=== PATIENT | female | born 1975 | race African-American/Black ===

== ENCOUNTER 2020-07-25 11:15 | Inpatient (IN) | payer OTHER ==
[~2020-07-25 11:15] MED LIST: chlordiazePOXIDE HCL 25 MG CAPSULE PO SCH
[2020-07-25 12:05] VITALS: BMI 39.8
[2020-07-25] MEDS ORDERED: ONDANSETRON *ODT* 4 MG TABLET SL PRN (12:49)
[2020-07-25] MEDS ORDERED: IBUPROFEN 400 MG TABLET (FP) PO PRN (12:49)
[2020-07-25] MEDS ORDERED: ACETAMINOPHEN 325 MG TABLET (FP) PO PRN (12:49)
[2020-07-25] MEDS ORDERED: MAGNESIUM HYDROX 2400MG/30ML ORAL SUSPENSION 30 ML CUP PO PRN (12:49)
[2020-07-25] MEDS ORDERED: NICOTINE POLACRILEX 2 MG GUM BUC PRN (12:49)
[2020-07-25] MEDS ORDERED: MAGNESIUM CITRATE 300 ML BOTTLE PO PRN (12:49)
[2020-07-25] MEDS ORDERED: BISMUTH SUBSALICYLATE 262 MG/15 ML BTL PO PRN (12:49)
[2020-07-25] MEDS ORDERED: MAG HYDROX/AL HYDROX/SIMETH 30 ML UNIT-DOSE CUP PO PRN (12:49)
[2020-07-25] MEDS ORDERED: AMMONIUM LACTATE 12% LOTION 225 GM BOTTLE TP PRN (12:51)
[2020-07-25] MEDS ORDERED: METHADONE HCL 10 MG TABLET PO SCH (13:30)
[2020-07-25] MEDS ORDERED: METHADONE HCL 40 MG DISPERSABLE TABLET ONE (14:20)
[2020-07-25] MEDS ORDERED: METHADONE HCL 10 MG TABLET ONE (14:20)
[2020-07-25] MEDS ORDERED: ALBUTEROL SO4 HFA INHALER IH ONE (14:21)
[2020-07-25] MEDS: chlordiazePOXIDE HCL 25 MG CAPSULE PO PRN (14:44)
[2020-07-25] MEDS: hydrOXYzine PAMOATE 25 MG CAPSULE (FP) PO SCH ×3 (14:44→22:05)
[2020-07-25] MEDS: METHOCARBAMOL 500 MG TABLET PO PRN (14:44)
[2020-07-25] MEDS: PRENATAL VITAMINS W/ FOLIC ACID TABLET (FP) PO SCH (14:45)
[2020-07-25] MEDS: METHADONE 80 MG, METHADONE 10 MG PO SCH (14:45)
[2020-07-25 14:47] LABS: POTASSIUM 3.8 mmol/L (3.5-5.1)
[2020-07-25 14:49] LABS: CALCIUM 9.5 mg/dL (8.5-10.1); HEMATOCRIT 42.1 % (32.4-45.2); HEMOGLOBIN 13.8 GM/dL (10.7-15.3); MCH 30.3 pg (25.7-33.7); MCHC 32.8 g/dl (32.0-36.0); MEAN CELL VOLUME 92.5 fl (80-96); MEAN PLT VOLUME 9.5 fl (7.5-11.1); PLATELET COUNT 280 K/MM3 (134-434); RBC 4.55 M/mm3 (3.60-5.2); RDW 14.4 % (11.6-15.6); WHITE BLOOD COUNT 7.7 K/mm3 (4.0-10.0)
[2020-07-25 14:50] LABS: ALBUMIN 3.6 g/dl (3.4-5.0); BLOOD UREA NITROGEN 11.2 mg/dL (7-18)
[2020-07-25 14:54] LABS: BILIRUBIN,TOTAL 0.6 mg/dL (0.2-1)
[2020-07-25 14:55] LABS: TOT PROT 8.8 g/dl (6.4-8.2)
[2020-07-25 15:46] LABS: HIV INTERPRETATION NEGATIVE (NEGATIVE)
[2020-07-25] MEDS: chlordiazePOXIDE HCL 25 MG CAPSULE PO SCH ×2 (17:33→22:06)
[2020-07-25] MEDS: ALBUTEROL SO4 HFA INHALER IH PRN (17:35)
[2020-07-25] MEDS: MENTHOL/PHENOL 1 EACH UD MM PRN ×2 (17:36→22:09)
[2020-07-25] MEDS: ACETAMINOPHEN 325 MG TABLET (FP) PO PRN (17:37)
[2020-07-25] MEDS: MELATONIN 5 MG TABLETS PO SCH (22:05)
[2020-07-25] MEDS: PRAZOSIN HCL 1 MG CAPSULE PO SCH (22:05)
[2020-07-25] MEDS: THIAMINE HCL 100 MG TABLET (FP) PO SCH (22:05)
[2020-07-26] MEDS ORDERED: METHADONE HCL 10 MG TABLET ONE (05:09)
[2020-07-26] MEDS ORDERED: METHADONE HCL 40 MG DISPERSABLE TABLET ONE (05:10)
[2020-07-26] MEDS: METHADONE 80 MG, METHADONE 10 MG PO SCH (07:22)
[2020-07-26] MEDS: hydrOXYzine PAMOATE 25 MG CAPSULE (FP) PO SCH ×5 (07:22→22:01)
[2020-07-26] MEDS: chlordiazePOXIDE HCL 25 MG CAPSULE PO SCH ×4 (07:23→22:02)
[2020-07-26] MEDS: PRENATAL VITAMINS W/ FOLIC ACID TABLET (FP) PO SCH (10:33)
[2020-07-26] MEDS: SERTRALINE HCL 25 MG TABLET (FP) PO SCH (10:34)
[2020-07-26] MEDS: MENTHOL/PHENOL 1 EACH UD MM PRN ×2 (10:38→22:05)
[2020-07-26] MEDS: ALBUTEROL SO4 HFA INHALER IH PRN ×3 (10:38→22:04)
[2020-07-26] MEDS: THIAMINE HCL 100 MG TABLET (FP) PO SCH (22:01)
[2020-07-26] MEDS: MELATONIN 5 MG TABLETS PO SCH (22:01)
[2020-07-26] MEDS: PRAZOSIN HCL 1 MG CAPSULE PO SCH (22:01)
[2020-07-27] MEDS: chlordiazePOXIDE HCL 25 MG CAPSULE PO SCH ×4 (05:15→23:07)
[2020-07-27] MEDS: hydrOXYzine PAMOATE 25 MG CAPSULE (FP) PO SCH ×5 (05:15→23:12)
[2020-07-27] MEDS: MENTHOL/PHENOL 1 EACH UD MM PRN (05:16)
[2020-07-27] MEDS: ALBUTEROL SO4 HFA INHALER IH PRN (05:16)
[2020-07-27] MEDS ORDERED: METHADONE HCL 10 MG TABLET ONE (07:07)
[2020-07-27] MEDS ORDERED: METHADONE HCL 40 MG DISPERSABLE TABLET ONE (07:08)
[2020-07-27] MEDS: METHADONE 80 MG, METHADONE 10 MG PO SCH (07:09)
[2020-07-27] MEDS: ACETAMINOPHEN 325 MG TABLET (FP) PO PRN (07:10)
[2020-07-27] MEDS ORDERED: ALBUTEROL SO4 0.083% IH SOL 2.5 MG/3 ML VIAL.NEB. NEB PRN (10:43)
[2020-07-27] MEDS: SERTRALINE HCL 25 MG TABLET (FP) PO SCH (10:49)
[2020-07-27] MEDS: METHOCARBAMOL 500 MG TABLET PO PRN (10:49)
[2020-07-27] MEDS: PRENATAL VITAMINS W/ FOLIC ACID TABLET (FP) PO SCH (10:50)
[2020-07-27] MEDS: chlordiazePOXIDE HCL 25 MG CAPSULE PO PRN ×2 (14:37→22:10)
[2020-07-27] MEDS: MELATONIN 5 MG TABLETS PO SCH (23:07)
[2020-07-27] MEDS: PRAZOSIN HCL 1 MG CAPSULE PO SCH (23:07)
[2020-07-27] MEDS: THIAMINE HCL 100 MG TABLET (FP) PO SCH (23:12)
[2020-07-28] MEDS ORDERED: chlordiazePOXIDE HCL 10 MG CAPSULE PO PRN
[2020-07-28] MEDS ORDERED: METHADONE HCL 10 MG TABLET ONE (04:18)
[2020-07-28] MEDS ORDERED: METHADONE HCL 40 MG DISPERSABLE TABLET ONE (04:19)
[2020-07-28] MEDS: hydrOXYzine PAMOATE 25 MG CAPSULE (FP) PO SCH ×5 (06:33→22:33)
[2020-07-28] MEDS: chlordiazePOXIDE HCL 10 MG CAPSULE PO SCH ×4 (06:33→22:33)
[2020-07-28] MEDS: MENTHOL/PHENOL 1 EACH UD MM PRN ×2 (06:38→17:23)
[2020-07-28 07:11] LABS: SARS-CoV-2 NAA Not Detected (Not Detected)
[2020-07-28] MEDS: METHADONE 80 MG, METHADONE 10 MG PO SCH (07:46)
[2020-07-28] MEDS: PRENATAL VITAMINS W/ FOLIC ACID TABLET (FP) PO SCH (10:02)
[2020-07-28] MEDS: SERTRALINE HCL 25 MG TABLET (FP) PO SCH (10:03)
[2020-07-28] MEDS ORDERED: ALBUTEROL SO4 2.5/IPRATROPIUM 0.5 INH SOL 3 ML VIAL.NEB. NEB PRN (12:57)
[2020-07-28] MEDS ORDERED: predniSONE 20 MG TABLET (UD) PO ONE (12:57)
[2020-07-28] MEDS: ACETAMINOPHEN 325 MG TABLET (FP) PO PRN (17:20)
[2020-07-28] MEDS: ALBUTEROL SO4 HFA INHALER IH PRN (17:21)
[2020-07-28] MEDS: MELATONIN 5 MG TABLETS PO SCH (22:32)
[2020-07-28] MEDS: PRAZOSIN HCL 1 MG CAPSULE PO SCH (22:32)
[2020-07-28] MEDS: THIAMINE HCL 100 MG TABLET (FP) PO SCH (22:33)
[2020-07-29] MEDS ORDERED: METHADONE HCL 10 MG TABLET ONE ×3 (04:23→07:46)
[2020-07-29] MEDS ORDERED: METHADONE HCL 40 MG DISPERSABLE TABLET ONE ×2 (04:24→07:43)
[2020-07-29] MEDS: chlordiazePOXIDE HCL 10 MG CAPSULE PO SCH ×2 (05:59→17:27)
[2020-07-29] MEDS: hydrOXYzine PAMOATE 25 MG CAPSULE (FP) PO SCH ×5 (06:00→21:51)
[2020-07-29] MEDS: METHADONE 80 MG, METHADONE 10 MG PO SCH (07:42)
[2020-07-29] MEDS: PRENATAL VITAMINS W/ FOLIC ACID TABLET (FP) PO SCH (09:09)
[2020-07-29] MEDS: SERTRALINE HCL 25 MG TABLET (FP) PO SCH (09:09)
[2020-07-29] MEDS ORDERED: AZITHROMYCIN 500 MG TABLET PO ONE (09:30)
[2020-07-29] MEDS ORDERED: AZITHROMYCIN 250 MG TABLET PO ONE (09:30)
[2020-07-29] MEDS ORDERED: predniSONE 10 MG TABLET (UD) PO ONE (10:00)
[2020-07-29] MEDS: ALBUTEROL SO4 HFA INHALER IH PRN ×2 (10:41→15:20)
[2020-07-29] MEDS: MELATONIN 5 MG TABLETS PO SCH (21:51)
[2020-07-29] MEDS: PRAZOSIN HCL 1 MG CAPSULE PO SCH (21:51)
[2020-07-29] MEDS: THIAMINE HCL 100 MG TABLET (FP) PO SCH (21:51)
[2020-07-30] MEDS ORDERED: METHADONE HCL 10 MG TABLET ONE (04:44)
[2020-07-30] MEDS ORDERED: METHADONE HCL 40 MG DISPERSABLE TABLET ONE (04:45)
[2020-07-30] MEDS ORDERED: chlordiazePOXIDE HCL 10 MG CAPSULE PO ONE (05:00)
[2020-07-30] MEDS: hydrOXYzine PAMOATE 25 MG CAPSULE (FP) PO SCH ×3 (05:43→09:20)
[2020-07-30] MEDS: METHADONE 80 MG, METHADONE 10 MG PO SCH (07:10)
[2020-07-30 08:59] VITALS: BP 118/84; PULSE 65; TEMP 96.1
[2020-07-30] MEDS: PRENATAL VITAMINS W/ FOLIC ACID TABLET (FP) PO SCH (09:16)
[2020-07-30] MEDS ORDERED: predniSONE 20 MG TABLET (UD) PO ONE (10:00)
[2020-07-30] MEDS ORDERED: AZITHROMYCIN 250 MG TABLET PO SCH (10:00)
[2020-07-30] MEDS ORDERED: SERTRALINE HCL 50 MG TABLET (FP) PO SCH (10:00)
[2020-07-31] MEDS ORDERED: predniSONE 10 MG TABLET (UD) PO ONE (10:00)
== END 2020-07-30 11:45 | disposition other institution (70) | DRG 773 ==
LOC: YASAS 11:15 → MERGE 12:32 → Y3N 12:32
PROVIDERS: ADMIT Allergy & Immunology; ATTEND Allergy & Immunology
PROC: HZ2ZZZZ Detoxification Services for Substance Abuse Treatment (ICD-10-PCS; principal; 2020-07-25)
DX: F10.230 Alcohol dependence with withdrawal, uncomplicated (principal); F11.20 Opioid dependence, uncomplicated; F14.20 Cocaine dependence, uncomplicated; F13.20 Sedative, hypnotic or anxiolytic dependence, uncomplicated; F17.210 Nicotine dependence, cigarettes, uncomplicated; F19.24 Other psychoactive substance dependence with psychoactive substance-induced mood disorder; F31.9 Bipolar disorder, unspecified; F43.10 Post-traumatic stress disorder, unspecified; J45.901 Unspecified asthma with (acute) exacerbation; I10 Essential (primary) hypertension; R73.03 Prediabetes; H91.92 Unspecified hearing loss, left ear; Z62.810 Personal history of physical and sexual abuse in childhood; Z59.0 Homelessness; Z56.0 Unemployment, unspecified
CPT/HCPCS: 36415; 71046-TC-FY; 80053; 81025; 82962; 85027; 86780; 87389; 93005; 93010; 94640; C9803; U0003; U0005

== ENCOUNTER 2020-07-30 12:21 | Inpatient (IN) | payer OTHER ==
[2020-07-30] MEDS ORDERED: guaiFENesin 200 MG/10 ML 10 ML UNIT-DOSE CUPS PO PRN (13:53)
[2020-07-30] MEDS ORDERED: MAG HYDROX/AL HYDROX/SIMETH 30 ML UNIT-DOSE CUP PO PRN (13:53)
[2020-07-30] MEDS ORDERED: LOPERAMIDE HCL 2 MG CAPSULE PO PRN (13:53)
[2020-07-30] MEDS ORDERED: MAGNESIUM HYDROX 2400MG/30ML ORAL SUSPENSION 30 ML CUP PO PRN (13:53)
[2020-07-30] MEDS ORDERED: MAGNESIUM CITRATE 300 ML BOTTLE PO PRN (13:53)
[2020-07-30] MEDS ORDERED: P-EPHED 60MG/TRIPROLIDI 2.5MG TABLET PO PRN (13:53)
[2020-07-30] MEDS ORDERED: AMMONIUM LACTATE 12% LOTION 225 GM BOTTLE TP PRN (14:06)
[2020-07-30] MEDS ORDERED: ALBUTEROL SO4 0.083% IH SOL 2.5 MG/3 ML VIAL.NEB. NEB PRN ×2 (14:07→14:09)
[2020-07-30] MEDS: METHOCARBAMOL 500 MG TABLET PO SCH ×2 (18:25→21:24)
[2020-07-30] MEDS: PRAZOSIN HCL 1 MG CAPSULE PO SCH (21:24)
[2020-07-30] MEDS: THIAMINE HCL 100 MG TABLET (FP) PO SCH (21:24)
[2020-07-30] MEDS: MELATONIN 5 MG TABLETS PO SCH (21:24)
[2020-07-31] MEDS ORDERED: METHADONE HCL 10 MG TABLET ONE (05:59)
[2020-07-31] MEDS ORDERED: METHADONE HCL 40 MG DISPERSABLE TABLET ONE (05:59)
[2020-07-31] MEDS ORDERED: METHADONE HCL 10 MG TABLET PO SCH (06:00)
[2020-07-31] MEDS: METHADONE 80 MG, METHADONE 10 MG PO SCH (06:28)
[2020-07-31] MEDS ORDERED: predniSONE 10 MG TABLET (UD) PO ONE (10:00)
[2020-07-31] MEDS ORDERED: SERTRALINE HCL 50 MG TABLET (FP) PO SCH (10:00)
[2020-07-31] MEDS: PRENATAL VITAMINS W/ FOLIC ACID TABLET (FP) PO SCH (10:06)
[2020-07-31] MEDS: SERTRALINE HCL 50 MG TABLET (FP) PO SCH (10:07)
[2020-07-31] MEDS: METHOCARBAMOL 500 MG TABLET PO SCH ×4 (10:07→21:31)
[2020-07-31] MEDS: AZITHROMYCIN 250 MG TABLET PO SCH (10:07)
[2020-07-31] MEDS: ALBUTEROL SO4 HFA INHALER IH PRN ×2 (10:08→21:32)
[2020-07-31] MEDS: ACETAMINOPHEN 325 MG TABLET (FP) PO PRN (14:15)
[2020-07-31] MEDS ORDERED: PT OWN MED DRAWER 7, Y5N ONE (19:22)
[2020-07-31] MEDS: THIAMINE HCL 100 MG TABLET (FP) PO SCH (21:31)
[2020-07-31] MEDS: PRAZOSIN HCL 1 MG CAPSULE PO SCH (21:31)
[2020-07-31] MEDS: MELATONIN 5 MG TABLETS PO SCH (21:31)
[2020-08-01] MEDS ORDERED: METHADONE HCL 40 MG DISPERSABLE TABLET ONE (03:42)
[2020-08-01] MEDS ORDERED: METHADONE HCL 10 MG TABLET ONE (03:42)
[2020-08-01] MEDS: METHADONE 80 MG, METHADONE 10 MG PO SCH (06:36)
[2020-08-01] MEDS: AZITHROMYCIN 250 MG TABLET PO SCH (09:53)
[2020-08-01] MEDS: METHOCARBAMOL 500 MG TABLET PO SCH ×4 (09:53→21:12)
[2020-08-01] MEDS: PRENATAL VITAMINS W/ FOLIC ACID TABLET (FP) PO SCH (09:53)
[2020-08-01] MEDS: SERTRALINE HCL 50 MG TABLET (FP) PO SCH (09:53)
[2020-08-01] MEDS: ALBUTEROL SO4 HFA INHALER IH PRN ×2 (09:53→15:48)
[2020-08-01] MEDS ORDERED: predniSONE 5 MG TABLET (UD) PO ONE (10:00)
[2020-08-01] MEDS: ALBUTEROL SO4 2.5/IPRATROPIUM 0.5 INH SOL 3 ML VIAL.NEB. NEB PRN (11:27)
[2020-08-01] MEDS: guaiFENesin 600 MG TABLET.ER (FP) PO SCH ×2 (12:05→21:12)
[2020-08-01] MEDS ORDERED: PT OWN MED DRAWER 7, Y5N ONE (19:57)
[2020-08-01] MEDS: THIAMINE HCL 100 MG TABLET (FP) PO SCH (21:12)
[2020-08-01] MEDS: MELATONIN 5 MG TABLETS PO SCH (21:12)
[2020-08-01] MEDS: PRAZOSIN HCL 1 MG CAPSULE PO SCH (21:12)
[2020-08-02] MEDS ORDERED: METHADONE HCL 10 MG TABLET ONE (03:24)
[2020-08-02] MEDS ORDERED: METHADONE HCL 40 MG DISPERSABLE TABLET ONE (03:24)
[2020-08-02] MEDS: METHADONE 80 MG, METHADONE 10 MG PO SCH (06:34)
[2020-08-02] MEDS ORDERED: PT OWN MED DRAWER 7, Y5N ONE ×2 (09:11→09:49)
[2020-08-02] MEDS: PRENATAL VITAMINS W/ FOLIC ACID TABLET (FP) PO SCH (09:46)
[2020-08-02] MEDS: METHOCARBAMOL 500 MG TABLET PO SCH ×4 (09:47→21:36)
[2020-08-02] MEDS: SERTRALINE HCL 50 MG TABLET (FP) PO SCH (09:47)
[2020-08-02] MEDS: guaiFENesin 600 MG TABLET.ER (FP) PO SCH ×2 (09:49→21:36)
[2020-08-02] MEDS ORDERED: predniSONE 5 MG TABLET (UD) PO ONE (10:00)
[2020-08-02] MEDS ORDERED: MASKS NR ONE (21:03)
[2020-08-02] MEDS: MELATONIN 5 MG TABLETS PO SCH (21:36)
[2020-08-02] MEDS: PRAZOSIN HCL 1 MG CAPSULE PO SCH (21:37)
[2020-08-02] MEDS: THIAMINE HCL 100 MG TABLET (FP) PO SCH (21:37)
[2020-08-03] MEDS ORDERED: METHADONE HCL 40 MG DISPERSABLE TABLET ONE (03:53)
[2020-08-03] MEDS ORDERED: METHADONE HCL 10 MG TABLET ONE (03:53)
[2020-08-03] MEDS: hydrOXYzine PAMOATE 25 MG CAPSULE (FP) PO PRN (06:26)
[2020-08-03] MEDS: METHADONE 80 MG, METHADONE 10 MG PO SCH (06:26)
[2020-08-03] MEDS: SERTRALINE HCL 50 MG TABLET (FP) PO SCH (09:40)
[2020-08-03] MEDS: guaiFENesin 600 MG TABLET.ER (FP) PO SCH ×2 (09:40→21:27)
[2020-08-03] MEDS: PRENATAL VITAMINS W/ FOLIC ACID TABLET (FP) PO SCH (09:40)
[2020-08-03] MEDS: METHOCARBAMOL 500 MG TABLET PO SCH ×4 (09:40→21:28)
[2020-08-03] MEDS ORDERED: predniSONE 1 MG TABLET (FP) PO ONE (10:00)
[2020-08-03 10:06] LABS: SARS-CoV-2 NAA Not Detected (Not Detected)
[2020-08-03] MEDS: PRAZOSIN HCL 1 MG CAPSULE PO SCH (21:27)
[2020-08-03] MEDS: THIAMINE HCL 100 MG TABLET (FP) PO SCH (21:28)
[2020-08-03] MEDS: MELATONIN 5 MG TABLETS PO SCH (21:28)
[2020-08-04] MEDS ORDERED: METHADONE HCL 40 MG DISPERSABLE TABLET ONE (03:22)
[2020-08-04] MEDS ORDERED: METHADONE HCL 10 MG TABLET ONE (03:22)
[2020-08-04] MEDS: METHADONE 80 MG, METHADONE 10 MG PO SCH (06:19)
[2020-08-04] MEDS: ACETAMINOPHEN 325 MG TABLET (FP) PO PRN (06:19)
[2020-08-04] MEDS ORDERED: COLLOIDAL OATMEAL 1 BAR EACH TP PRN (09:20)
[2020-08-04] MEDS: METHOCARBAMOL 500 MG TABLET PO SCH ×4 (10:14→21:49)
[2020-08-04] MEDS: PRENATAL VITAMINS W/ FOLIC ACID TABLET (FP) PO SCH (10:14)
[2020-08-04] MEDS: guaiFENesin 600 MG TABLET.ER (FP) PO SCH ×2 (10:15→21:49)
[2020-08-04] MEDS: SERTRALINE HCL 50 MG TABLET (FP) PO SCH (10:15)
[2020-08-04] MEDS: ALBUTEROL SO4 2.5/IPRATROPIUM 0.5 INH SOL 3 ML VIAL.NEB. NEB PRN (10:26)
[2020-08-04] MEDS: MENTHOL/PHENOL 1 EACH UD MM PRN (10:44)
[2020-08-04] MEDS ORDERED: ALBUTEROL SO4 2.5/IPRATROPIUM 0.5 INH SOL 3 ML VIAL.NEB. NEB PRN (13:03)
[2020-08-04] MEDS: PRAZOSIN HCL 1 MG CAPSULE PO SCH (21:49)
[2020-08-04] MEDS: MELATONIN 5 MG TABLETS PO SCH (21:49)
[2020-08-04] MEDS: THIAMINE HCL 100 MG TABLET (FP) PO SCH (21:49)
[2020-08-04] MEDS: ALBUTEROL SO4 HFA INHALER IH PRN (22:01)
[2020-08-05] MEDS ORDERED: METHADONE HCL 10 MG TABLET ONE (03:55)
[2020-08-05] MEDS ORDERED: METHADONE HCL 40 MG DISPERSABLE TABLET ONE (03:55)
[2020-08-05] MEDS: METHADONE 80 MG, METHADONE 10 MG PO SCH (06:31)
[2020-08-05] MEDS: METHOCARBAMOL 500 MG TABLET PO SCH ×4 (10:11→21:28)
[2020-08-05] MEDS: guaiFENesin 600 MG TABLET.ER (FP) PO SCH ×2 (10:11→21:28)
[2020-08-05] MEDS: SERTRALINE HCL 50 MG TABLET (FP) PO SCH (10:11)
[2020-08-05] MEDS: PRENATAL VITAMINS W/ FOLIC ACID TABLET (FP) PO SCH (10:11)
[2020-08-05] MEDS: ALBUTEROL SO4 HFA INHALER IH PRN ×2 (10:11→14:50)
[2020-08-05] MEDS: MENTHOL/PHENOL 1 EACH UD MM PRN ×2 (10:13→21:30)
[2020-08-05] MEDS ORDERED: PT OWN MED DRAWER 7, Y5N ONE (20:21)
[2020-08-05] MEDS: PRAZOSIN HCL 1 MG CAPSULE PO SCH (21:28)
[2020-08-05] MEDS: MELATONIN 5 MG TABLETS PO SCH (21:28)
[2020-08-05] MEDS: THIAMINE HCL 100 MG TABLET (FP) PO SCH (21:28)
[2020-08-06] MEDS ORDERED: METHADONE HCL 10 MG TABLET ONE (06:33)
[2020-08-06] MEDS ORDERED: METHADONE HCL 40 MG DISPERSABLE TABLET ONE (06:33)
[2020-08-06] MEDS: METHADONE 80 MG, METHADONE 10 MG PO SCH (06:33)
[2020-08-06] MEDS ORDERED: PT OWN MED DRAWER 7, Y5N ONE ×2 (08:18→20:28)
[2020-08-06] MEDS: PRENATAL VITAMINS W/ FOLIC ACID TABLET (FP) PO SCH (10:08)
[2020-08-06] MEDS: METHOCARBAMOL 500 MG TABLET PO SCH ×4 (10:08→21:38)
[2020-08-06] MEDS: NICOTINE POLACRILEX 2 MG GUM BUC PRN (10:09)
[2020-08-06] MEDS: guaiFENesin 600 MG TABLET.ER (FP) PO SCH ×2 (10:09→21:38)
[2020-08-06] MEDS: SERTRALINE HCL 50 MG TABLET (FP) PO SCH (10:09)
[2020-08-06] MEDS: ALBUTEROL SO4 HFA INHALER IH PRN ×2 (10:10→17:36)
[2020-08-06] MEDS ORDERED: MASKS NR ONE (20:57)
[2020-08-06] MEDS: THIAMINE HCL 100 MG TABLET (FP) PO SCH (21:38)
[2020-08-06] MEDS: PRAZOSIN HCL 1 MG CAPSULE PO SCH (21:38)
[2020-08-06] MEDS: MELATONIN 5 MG TABLETS PO SCH (21:38)
[2020-08-07] MEDS: IBUPROFEN 400 MG TABLET (FP) PO PRN (01:38)
[2020-08-07] MEDS ORDERED: METHADONE HCL 10 MG TABLET ONE (04:56)
[2020-08-07] MEDS ORDERED: METHADONE HCL 40 MG DISPERSABLE TABLET ONE (04:56)
[2020-08-07] MEDS: METHADONE 80 MG, METHADONE 10 MG PO SCH (06:26)
[2020-08-07] MEDS ORDERED: PT OWN MED DRAWER 7, Y5N ONE (08:16)
[2020-08-07] MEDS: guaiFENesin 600 MG TABLET.ER (FP) PO SCH ×2 (10:07→21:35)
[2020-08-07] MEDS: METHOCARBAMOL 500 MG TABLET PO SCH ×4 (10:07→21:36)
[2020-08-07] MEDS: PRENATAL VITAMINS W/ FOLIC ACID TABLET (FP) PO SCH (10:07)
[2020-08-07] MEDS: SERTRALINE HCL 50 MG TABLET (FP) PO SCH (10:08)
[2020-08-07] MEDS: ALBUTEROL SO4 HFA INHALER IH PRN (10:09)
[2020-08-07] MEDS: ACETAMINOPHEN 325 MG TABLET (FP) PO PRN (21:34)
[2020-08-07] MEDS: MELATONIN 5 MG TABLETS PO SCH (21:35)
[2020-08-07] MEDS: THIAMINE HCL 100 MG TABLET (FP) PO SCH (21:35)
[2020-08-07] MEDS: PRAZOSIN HCL 1 MG CAPSULE PO SCH (21:35)
[2020-08-07] MEDS: hydrOXYzine PAMOATE 25 MG CAPSULE (FP) PO PRN (21:36)
[2020-08-08] MEDS ORDERED: METHADONE HCL 10 MG TABLET ONE (03:20)
[2020-08-08] MEDS ORDERED: METHADONE HCL 40 MG DISPERSABLE TABLET ONE (03:20)
[2020-08-08] MEDS: METHADONE 80 MG, METHADONE 10 MG PO SCH (06:45)
[2020-08-08] MEDS: PRENATAL VITAMINS W/ FOLIC ACID TABLET (FP) PO SCH (09:27)
[2020-08-08] MEDS: SERTRALINE HCL 50 MG TABLET (FP) PO SCH (09:27)
[2020-08-08] MEDS: guaiFENesin 600 MG TABLET.ER (FP) PO SCH ×2 (09:27→21:20)
[2020-08-08] MEDS: METHOCARBAMOL 500 MG TABLET PO SCH ×4 (09:27→21:20)
[2020-08-08] MEDS ORDERED: ALBUTEROL SO4 2.5/IPRATROPIUM 0.5 INH SOL 3 ML VIAL.NEB. NEB PRN (14:31)
[2020-08-08] MEDS: ACETAMINOPHEN 325 MG TABLET (FP) PO PRN (17:52)
[2020-08-08] MEDS ORDERED: PT OWN MED DRAWER 7, Y5N ONE (20:29)
[2020-08-08] MEDS: PRAZOSIN HCL 1 MG CAPSULE PO SCH (21:19)
[2020-08-08] MEDS: THIAMINE HCL 100 MG TABLET (FP) PO SCH (21:20)
[2020-08-08] MEDS: ALBUTEROL SO4 HFA INHALER IH PRN (21:22)
[2020-08-08] MEDS: MELATONIN 5 MG TABLETS PO SCH (22:50)
[2020-08-09] MEDS ORDERED: METHADONE HCL 10 MG TABLET ONE (04:10)
[2020-08-09] MEDS ORDERED: METHADONE HCL 40 MG DISPERSABLE TABLET ONE (04:10)
[2020-08-09] MEDS: METHADONE 80 MG, METHADONE 10 MG PO SCH (06:13)
[2020-08-09] MEDS: ALBUTEROL SO4 HFA INHALER IH PRN (06:17)
[2020-08-09] MEDS: PRENATAL VITAMINS W/ FOLIC ACID TABLET (FP) PO SCH (09:53)
[2020-08-09] MEDS: guaiFENesin 600 MG TABLET.ER (FP) PO SCH ×2 (09:53→21:24)
[2020-08-09] MEDS: SERTRALINE HCL 50 MG TABLET (FP) PO SCH (09:54)
[2020-08-09] MEDS: METHOCARBAMOL 500 MG TABLET PO SCH ×4 (09:54→21:24)
[2020-08-09] MEDS: NICOTINE POLACRILEX 2 MG GUM BUC PRN (09:55)
[2020-08-09] MEDS: IBUPROFEN 400 MG TABLET (FP) PO PRN (12:24)
[2020-08-09] MEDS: THIAMINE HCL 100 MG TABLET (FP) PO SCH (21:23)
[2020-08-09] MEDS: hydrOXYzine PAMOATE 25 MG CAPSULE (FP) PO PRN (21:24)
[2020-08-09] MEDS: MELATONIN 5 MG TABLETS PO SCH (21:24)
[2020-08-09] MEDS: PRAZOSIN HCL 1 MG CAPSULE PO SCH (21:24)
[2020-08-10] MEDS ORDERED: METHADONE HCL 40 MG DISPERSABLE TABLET ONE (03:58)
[2020-08-10] MEDS ORDERED: METHADONE HCL 10 MG TABLET ONE (03:58)
[2020-08-10] MEDS: METHADONE 80 MG, METHADONE 10 MG PO SCH (06:27)
[2020-08-10] MEDS: METHOCARBAMOL 500 MG TABLET PO SCH ×4 (10:12→21:34)
[2020-08-10] MEDS: PRENATAL VITAMINS W/ FOLIC ACID TABLET (FP) PO SCH (10:12)
[2020-08-10] MEDS: guaiFENesin 600 MG TABLET.ER (FP) PO SCH ×2 (10:12→21:24)
[2020-08-10] MEDS: SERTRALINE HCL 50 MG TABLET (FP) PO SCH (10:13)
[2020-08-10] MEDS: ALBUTEROL SO4 HFA INHALER IH PRN (10:13)
[2020-08-10] MEDS: NICOTINE POLACRILEX 2 MG GUM BUC PRN (10:14)
[2020-08-10] MEDS: IBUPROFEN 400 MG TABLET (FP) PO PRN (14:32)
[2020-08-10] MEDS: DOCUSATE SODIUM 100 MG CAPSULE (FP) PO SCH (21:24)
[2020-08-10] MEDS: hydrOXYzine PAMOATE 25 MG CAPSULE (FP) PO PRN (21:24)
[2020-08-10] MEDS: THIAMINE HCL 100 MG TABLET (FP) PO SCH (21:24)
[2020-08-10] MEDS: MELATONIN 5 MG TABLETS PO SCH (21:24)
[2020-08-10] MEDS: PRAZOSIN HCL 1 MG CAPSULE PO SCH (21:25)
[2020-08-10] MEDS ORDERED: DOCUSATE SODIUM 100 MG CAPSULE (FP) PO SCH (22:00)
[2020-08-11] MEDS ORDERED: METHADONE HCL 10 MG TABLET ONE (03:15)
[2020-08-11] MEDS ORDERED: METHADONE HCL 40 MG DISPERSABLE TABLET ONE (03:16)
[2020-08-11] MEDS: METHADONE 80 MG, METHADONE 10 MG PO SCH (07:14)
[2020-08-11] MEDS: guaiFENesin 600 MG TABLET.ER (FP) PO SCH ×2 (10:38→21:17)
[2020-08-11] MEDS: PRENATAL VITAMINS W/ FOLIC ACID TABLET (FP) PO SCH (10:39)
[2020-08-11] MEDS: METHOCARBAMOL 500 MG TABLET PO SCH ×4 (10:39→21:17)
[2020-08-11] MEDS: SERTRALINE HCL 50 MG TABLET (FP) PO SCH (10:39)
[2020-08-11] MEDS ORDERED: PT OWN MED DRAWER 7, Y5N ONE (10:42)
[2020-08-11] MEDS: ALBUTEROL SO4 HFA INHALER IH PRN (10:42)
[2020-08-11] MEDS: IBUPROFEN 400 MG TABLET (FP) PO PRN (17:07)
[2020-08-11] MEDS: DOCUSATE SODIUM 100 MG CAPSULE (FP) PO SCH (21:17)
[2020-08-11] MEDS: hydrOXYzine PAMOATE 25 MG CAPSULE (FP) PO PRN (21:17)
[2020-08-11] MEDS: THIAMINE HCL 100 MG TABLET (FP) PO SCH (21:17)
[2020-08-11] MEDS: PRAZOSIN HCL 1 MG CAPSULE PO SCH (21:17)
[2020-08-11] MEDS: MELATONIN 5 MG TABLETS PO SCH (21:17)
[2020-08-11] MEDS ORDERED: MASKS NR ONE (22:12)
[2020-08-12] MEDS ORDERED: METHADONE HCL 10 MG TABLET ONE (03:34)
[2020-08-12] MEDS ORDERED: METHADONE HCL 40 MG DISPERSABLE TABLET ONE (03:34)
[2020-08-12] MEDS: METHADONE 80 MG, METHADONE 10 MG PO SCH (06:23)
[2020-08-12] MEDS: IBUPROFEN 400 MG TABLET (FP) PO PRN (06:24)
[2020-08-12] MEDS ORDERED: PT OWN MED DRAWER 7, Y5N ONE ×2 (08:19→20:28)
[2020-08-12] MEDS: PRENATAL VITAMINS W/ FOLIC ACID TABLET (FP) PO SCH (10:25)
[2020-08-12] MEDS: METHOCARBAMOL 500 MG TABLET PO SCH ×4 (10:26→21:48)
[2020-08-12] MEDS: SERTRALINE HCL 50 MG TABLET (FP) PO SCH (10:26)
[2020-08-12] MEDS: guaiFENesin 600 MG TABLET.ER (FP) PO SCH ×2 (10:26→21:47)
[2020-08-12] MEDS ORDERED: ALBUTEROL SO4 2.5/IPRATROPIUM 0.5 INH SOL 3 ML VIAL.NEB. NEB PRN (14:31)
[2020-08-12] MEDS: MELATONIN 5 MG TABLETS PO SCH (21:46)
[2020-08-12] MEDS: PRAZOSIN HCL 1 MG CAPSULE PO SCH (21:48)
[2020-08-12] MEDS: DOCUSATE SODIUM 100 MG CAPSULE (FP) PO SCH (21:48)
[2020-08-12] MEDS: THIAMINE HCL 100 MG TABLET (FP) PO SCH (21:48)
[2020-08-12] MEDS: ALBUTEROL SO4 HFA INHALER IH PRN (21:48)
[2020-08-13] MEDS: ACETAMINOPHEN 325 MG TABLET (FP) PO PRN (04:13)
[2020-08-13] MEDS ORDERED: METHADONE HCL 10 MG TABLET ONE (04:34)
[2020-08-13] MEDS ORDERED: METHADONE HCL 40 MG DISPERSABLE TABLET ONE (04:35)
[2020-08-13] MEDS ORDERED: METHADONE 80 MG, METHADONE 10 MG PO SCH (06:00)
[2020-08-13 07:11] VITALS: BP 141/80; PULSE 84; TEMP 97.7
[2020-08-13] MEDS: ALBUTEROL SO4 HFA INHALER IH PRN (08:01)
[2020-08-13] MEDS: METHOCARBAMOL 500 MG TABLET PO SCH (09:36)
[2020-08-13] MEDS: guaiFENesin 600 MG TABLET.ER (FP) PO SCH (09:36)
[2020-08-13] MEDS: SERTRALINE HCL 50 MG TABLET (FP) PO SCH (09:36)
[2020-08-13] MEDS: PRENATAL VITAMINS W/ FOLIC ACID TABLET (FP) PO SCH (09:38)
== END 2020-08-13 09:42 | disposition home or self-care (01) | DRG 772 ==
LOC: YASAS 12:21 → Y5N 12:22
PROVIDERS: ADMIT Allergy & Immunology; ATTEND Allergy & Immunology
PROC: HZ42ZZZ Group Counseling for Substance Abuse Treatment, Cognitive-Behavioral (ICD-10-PCS; principal; 2020-07-30)
DX: F10.20 Alcohol dependence, uncomplicated (principal); F11.20 Opioid dependence, uncomplicated; F14.20 Cocaine dependence, uncomplicated; F17.210 Nicotine dependence, cigarettes, uncomplicated; F31.9 Bipolar disorder, unspecified; F19.24 Other psychoactive substance dependence with psychoactive substance-induced mood disorder; F43.10 Post-traumatic stress disorder, unspecified; J45.909 Unspecified asthma, uncomplicated; J20.9 Acute bronchitis, unspecified; W20.8XXA Other cause of strike by thrown, projected or falling object, initial encounter; Y93.89 Activity, other specified; Y92.238 Other place in hospital as the place of occurrence of the external cause; Y99.8 Other external cause status; Z59.0 Homelessness
CPT/HCPCS: 82962; 94640; C9803; U0003; U0005

== ENCOUNTER 2021-09-02 11:34 | Inpatient (IN) | payer OTHER ==
[2021-09-02] MEDS ORDERED: BISMUTH SUBSALICYLATE 524 MG/30 ML PO PRN (12:32)
[2021-09-02] MEDS ORDERED: MAG HYDROX/AL HYDROX/SIMETH 30 ML UNIT-DOSE CUP PO PRN (12:32)
[2021-09-02] MEDS ORDERED: MAGNESIUM HYDROX 2400MG/30ML ORAL SUSPENSION 30 ML CUP PO PRN (12:32)
[2021-09-02] MEDS ORDERED: ONDANSETRON *ODT* 4 MG TABLET SL PRN (12:32)
[2021-09-02] MEDS ORDERED: MAGNESIUM CITRATE 300 ML BOTTLE PO PRN (12:32)
[2021-09-02] MEDS ORDERED: LOPERAMIDE HCL 2 MG CAPSULE PO PRN (12:32)
[2021-09-02] MEDS ORDERED: LORazepam 1 MG TABLET PO PRN (12:32)
[2021-09-02] MEDS ORDERED: BENZOCAINE/MENTHOL (CHLORASEPTIC ) LOZENGE MM PRN (12:32)
[2021-09-02] MEDS ORDERED: DICYCLOMINE HCL 10 MG CAPSULE PO PRN (12:32)
[2021-09-02] MEDS ORDERED: ACETAMINOPHEN 325 MG TABLET (FP) PO PRN ×2 (12:32)
[2021-09-02] MEDS ORDERED: ALBUTEROL SO4 HFA INHALER IH PRN (12:38)
[2021-09-02] MEDS ORDERED: AMMONIUM LACTATE 12% LOTION 225 GM BOTTLE TP PRN (12:38)
[2021-09-02 13:51] VITALS: BMI 38.2
[2021-09-02 15:00] LABS: HEMATOCRIT 39.4 % (32.4-45.2); HEMOGLOBIN 12.4 GM/dL (10.7-15.3); MCH 29.1 pg (25.7-33.7); MCHC 31.6 g/dl (32.0-36.0); MEAN CELL VOLUME 92.1 fl (80-96); MEAN PLT VOLUME 9.3 fl (7.5-11.1); PLATELET COUNT 209 10^3/uL (134-434); RBC 4.27 M/mm3 (3.60-5.2); RDW 15.1 % (11.6-15.6); WHITE BLOOD COUNT 3.8 K/mm3 (4.0-10.0)
[2021-09-02 15:25] LABS: ALBUMIN 3.5 g/dl (3.4-5.0); BLOOD UREA NITROGEN 15.5 mg/dL (7-18); CREATININE 1.1 mg/dL (0.55-1.3)
[2021-09-02 15:27] LABS: BILIRUBIN,TOTAL 0.3 mg/dL (0.2-1); CALCIUM 9.2 mg/dL (8.5-10.1); TOT PROT 7.6 g/dl (6.4-8.2)
[2021-09-02] MEDS: LORazepam 2 MG TABLET PO SCH ×2 (17:57→22:32)
[2021-09-02] MEDS: NICOTINE 7 MG/24 HOURS TOPICAL PATCH TD SCH (17:58)
[2021-09-02] MEDS: PRENATAL VITAMINS W/ FOLIC ACID TABLET (FP) PO SCH (17:59)
[2021-09-02] MEDS: hydrOXYzine PAMOATE 25 MG CAPSULE (FP) PO SCH ×3 (20:59→22:31)
[2021-09-02] MEDS: SERTRALINE HCL 50 MG TABLET (FP) PO SCH (21:00)
[2021-09-02] MEDS: THIAMINE HCL 100 MG TABLET (FP) PO SCH (22:31)
[2021-09-02] MEDS: PRAZOSIN HCL 1 MG CAPSULE PO SCH (22:31)
[2021-09-02] MEDS: MELATONIN 5 MG TABLETS PO SCH (22:32)
[2021-09-02] MEDS: IBUPROFEN 400 MG TABLET (FP) PO PRN (22:33)
[2021-09-03] MEDS: LORazepam 2 MG TABLET PO SCH ×4 (05:46→23:12)
[2021-09-03] MEDS: hydrOXYzine PAMOATE 25 MG CAPSULE (FP) PO SCH ×5 (05:46→23:12)
[2021-09-03] MEDS ORDERED: methaDONE HCL 40 MG DISPERSABLE TABLET ONE (09:28)
[2021-09-03] MEDS ORDERED: methaDONE HCL 10 MG TABLET ONE (09:28)
[2021-09-03] MEDS ORDERED: methaDONE HCL 40 MG DISPERSABLE TABLET PO SCH (10:00)
[2021-09-03] MEDS: NICOTINE 10 MG CARTRIDGE (INHALER) IH PRN (10:08)
[2021-09-03] MEDS: PRENATAL VITAMINS W/ FOLIC ACID TABLET (FP) PO SCH (10:09)
[2021-09-03] MEDS: SERTRALINE HCL 50 MG TABLET (FP) PO SCH (10:09)
[2021-09-03] MEDS: NICOTINE 7 MG/24 HOURS TOPICAL PATCH TD SCH (12:15)
[2021-09-03 15:08] LABS: HIV INTERPRETATION NEGATIVE (NEGATIVE)
[2021-09-03] MEDS: IBUPROFEN 400 MG TABLET (FP) PO PRN (18:45)
[2021-09-03] MEDS: METHOCARBAMOL 500 MG TABLET PO PRN (18:45)
[2021-09-03] MEDS: PRAZOSIN HCL 1 MG CAPSULE PO SCH (23:12)
[2021-09-03] MEDS: MELATONIN 5 MG TABLETS PO SCH (23:12)
[2021-09-03] MEDS: THIAMINE HCL 100 MG TABLET (FP) PO SCH (23:12)
[2021-09-04] MEDS ORDERED: methaDONE HCL 40 MG DISPERSABLE TABLET ONE (04:42)
[2021-09-04] MEDS ORDERED: methaDONE HCL 10 MG TABLET ONE (04:42)
[2021-09-04] MEDS: LORazepam 1 MG TABLET PO SCH ×4 (05:54→22:31)
[2021-09-04] MEDS: hydrOXYzine PAMOATE 25 MG CAPSULE (FP) PO SCH ×5 (05:55→22:30)
[2021-09-04] MEDS: NICOTINE 10 MG CARTRIDGE (INHALER) IH PRN ×2 (06:00→10:38)
[2021-09-04] MEDS: NICOTINE 7 MG/24 HOURS TOPICAL PATCH TD SCH (10:37)
[2021-09-04] MEDS: PRENATAL VITAMINS W/ FOLIC ACID TABLET (FP) PO SCH (10:37)
[2021-09-04] MEDS: SERTRALINE HCL 50 MG TABLET (FP) PO SCH (10:37)
[2021-09-04] MEDS ORDERED: COLLOIDAL OATMEAL 1 BAR EACH TP PRN (10:59)
[2021-09-04] MEDS: TOLNAFTATE 1% CREAM 15 GM TUBE TP SCH ×2 (12:24→22:30)
[2021-09-04 14:09] LABS: SARS-CoV-2 NAA Not Detected (Not Detected)
[2021-09-04] MEDS: THIAMINE HCL 100 MG TABLET (FP) PO SCH (22:30)
[2021-09-04] MEDS: MELATONIN 5 MG TABLETS PO SCH (22:30)
[2021-09-04] MEDS: PRAZOSIN HCL 1 MG CAPSULE PO SCH (22:31)
[2021-09-05] MEDS ORDERED: LORazepam 0.5 MG TABLET PO PRN
[2021-09-05] MEDS ORDERED: methaDONE HCL 40 MG DISPERSABLE TABLET ONE (04:50)
[2021-09-05] MEDS ORDERED: methaDONE HCL 10 MG TABLET ONE (04:50)
[2021-09-05] MEDS: hydrOXYzine PAMOATE 25 MG CAPSULE (FP) PO SCH ×2 (06:03→10:09)
[2021-09-05] MEDS: METHOCARBAMOL 500 MG TABLET PO PRN ×2 (06:03→11:37)
[2021-09-05] MEDS: LORazepam 0.5 MG TABLET PO SCH ×2 (06:03→10:09)
[2021-09-05] MEDS: NICOTINE 10 MG CARTRIDGE (INHALER) IH PRN ×2 (06:04→10:10)
[2021-09-05] MEDS: NICOTINE 7 MG/24 HOURS TOPICAL PATCH TD SCH (10:08)
[2021-09-05] MEDS: PRENATAL VITAMINS W/ FOLIC ACID TABLET (FP) PO SCH (10:08)
[2021-09-05] MEDS: TOLNAFTATE 1% CREAM 15 GM TUBE TP SCH (10:08)
[2021-09-05] MEDS: SERTRALINE HCL 50 MG TABLET (FP) PO SCH (10:09)
[2021-09-05] MEDS: IBUPROFEN 400 MG TABLET (FP) PO PRN (11:37)
[2021-09-05 13:01] VITALS: BP 102/60; PULSE 68; TEMP 97.3
[2021-09-06] MEDS ORDERED: LORazepam 0.5 MG TABLET PO ONE (05:00)
== END 2021-09-05 14:00 | disposition other institution (70) | DRG 773 ==
LOC: YASAS 11:34 → Y3N 16:28
PROVIDERS: ADMIT Allergy & Immunology; ATTEND Surgery
PROC: HZ2ZZZZ Detoxification Services for Substance Abuse Treatment (ICD-10-PCS; principal; 2021-09-02)
DX: F10.230 Alcohol dependence with withdrawal, uncomplicated (principal); F11.20 Opioid dependence, uncomplicated; F14.20 Cocaine dependence, uncomplicated; F12.20 Cannabis dependence, uncomplicated; F17.210 Nicotine dependence, cigarettes, uncomplicated; F31.81 Bipolar II disorder; F39 Unspecified mood [affective] disorder; F43.10 Post-traumatic stress disorder, unspecified; J45.909 Unspecified asthma, uncomplicated; R73.03 Prediabetes; Z96.641 Presence of right artificial hip joint; Z86.19 Personal history of other infectious and parasitic diseases; Z87.39 Personal history of other diseases of the musculoskeletal system and connective tissue
CPT/HCPCS: 36415; 71046-TC-FY; 80053; 82962; 85027; 86780; 87389; C9803-CS; U0003; U0005

== ENCOUNTER 2021-09-05 14:17 | Inpatient (IN) | payer OTHER ==
[2021-09-05] MEDS ORDERED: guaiFENesin 200 MG/10 ML 10 ML UNIT-DOSE CUPS PO PRN (16:10)
[2021-09-05] MEDS ORDERED: MAGNESIUM CITRATE 300 ML BOTTLE PO PRN (16:10)
[2021-09-05] MEDS ORDERED: MAG HYDROX/AL HYDROX/SIMETH 30 ML UNIT-DOSE CUP PO PRN (16:10)
[2021-09-05] MEDS ORDERED: ACETAMINOPHEN 325 MG TABLET (FP) PO PRN (16:10)
[2021-09-05] MEDS ORDERED: LOPERAMIDE HCL 2 MG CAPSULE PO PRN (16:10)
[2021-09-05] MEDS ORDERED: MAGNESIUM HYDROX 2400MG/30ML ORAL SUSPENSION 30 ML CUP PO PRN (16:10)
[2021-09-05] MEDS ORDERED: BENZOCAINE/MENTHOL (CHLORASEPTIC ) LOZENGE MM PRN (16:10)
[2021-09-05] MEDS ORDERED: P-EPHED 60MG/TRIPROLIDI 2.5MG TABLET PO PRN (16:10)
[2021-09-05] MEDS ORDERED: AMMONIUM LACTATE 12% LOTION 225 GM BOTTLE TP PRN (16:11)
[2021-09-05] MEDS: MELATONIN 5 MG TABLETS PO SCH (22:07)
[2021-09-05] MEDS: THIAMINE HCL 100 MG TABLET (FP) PO SCH (22:07)
[2021-09-05] MEDS: hydrOXYzine PAMOATE 25 MG CAPSULE (FP) PO PRN (22:08)
[2021-09-05] MEDS: PRAZOSIN HCL 2 MG CAPSULE PO SCH (22:08)
[2021-09-05] MEDS: NICOTINE 10 MG CARTRIDGE (INHALER) IH PRN (22:09)
[2021-09-06] MEDS ORDERED: methaDONE HCL 10 MG TABLET ONE (06:17)
[2021-09-06] MEDS ORDERED: methaDONE HCL 40 MG DISPERSABLE TABLET ONE (06:18)
[2021-09-06] MEDS ORDERED: methaDONE HCL 40 MG DISPERSABLE TABLET PO SCH (10:00)
[2021-09-06] MEDS: NICOTINE 10 MG CARTRIDGE (INHALER) IH PRN (10:47)
[2021-09-06] MEDS: PRENATAL VITAMINS W/ FOLIC ACID TABLET (FP) PO SCH (10:47)
[2021-09-06] MEDS: METHOCARBAMOL 500 MG TABLET PO PRN ×2 (10:48→21:07)
[2021-09-06] MEDS: IBUPROFEN 400 MG TABLET (FP) PO PRN ×2 (10:48→21:07)
[2021-09-06] MEDS: NICOTINE 7 MG/24 HOURS TOPICAL PATCH TD SCH (10:48)
[2021-09-06] MEDS: hydrOXYzine PAMOATE 25 MG CAPSULE (FP) PO PRN (10:49)
[2021-09-06] MEDS: PRAZOSIN HCL 2 MG CAPSULE PO SCH (21:07)
[2021-09-06] MEDS: THIAMINE HCL 100 MG TABLET (FP) PO SCH (21:08)
[2021-09-06] MEDS: MELATONIN 5 MG TABLETS PO SCH (21:08)
[2021-09-07] MEDS ORDERED: methaDONE HCL 40 MG DISPERSABLE TABLET ONE (05:41)
[2021-09-07] MEDS ORDERED: methaDONE HCL 10 MG TABLET ONE (05:41)
[2021-09-07] MEDS: PRENATAL VITAMINS W/ FOLIC ACID TABLET (FP) PO SCH (11:16)
[2021-09-07] MEDS: NICOTINE 7 MG/24 HOURS TOPICAL PATCH TD SCH (11:16)
[2021-09-07] MEDS: NICOTINE 10 MG CARTRIDGE (INHALER) IH PRN (11:17)
[2021-09-07] MEDS: hydrOXYzine PAMOATE 25 MG CAPSULE (FP) PO PRN ×2 (11:18→21:08)
[2021-09-07] MEDS: METHOCARBAMOL 500 MG TABLET PO PRN ×2 (11:18→21:08)
[2021-09-07] MEDS ORDERED: SERTRALINE HCL 50 MG TABLET (FP) PO ONE (13:57)
[2021-09-07] MEDS: MELATONIN 5 MG TABLETS PO SCH (21:08)
[2021-09-07] MEDS: THIAMINE HCL 100 MG TABLET (FP) PO SCH (21:08)
[2021-09-07] MEDS: PRAZOSIN HCL 2 MG CAPSULE PO SCH (21:08)
[2021-09-08] MEDS ORDERED: methaDONE HCL 10 MG TABLET ONE (06:37)
[2021-09-08] MEDS: NICOTINE 10 MG CARTRIDGE (INHALER) IH PRN ×2 (06:37→11:11)
[2021-09-08] MEDS ORDERED: methaDONE HCL 40 MG DISPERSABLE TABLET ONE (06:38)
[2021-09-08] MEDS ORDERED: PRAZOSIN HCL 1 MG CAPSULE PO SCH (09:20)
[2021-09-08] MEDS: PRENATAL VITAMINS W/ FOLIC ACID TABLET (FP) PO SCH (11:11)
[2021-09-08] MEDS: SERTRALINE HCL 50 MG TABLET (FP) PO SCH (11:11)
[2021-09-08] MEDS: NICOTINE 7 MG/24 HOURS TOPICAL PATCH TD SCH (11:11)
[2021-09-08] MEDS: MELATONIN 5 MG TABLETS PO SCH (21:15)
[2021-09-08] MEDS: METHOCARBAMOL 500 MG TABLET PO PRN (21:15)
[2021-09-08] MEDS: THIAMINE HCL 100 MG TABLET (FP) PO SCH (21:15)
[2021-09-08] MEDS: PRAZOSIN HCL 1 MG CAPSULE PO SCH (21:19)
[2021-09-09] MEDS ORDERED: methaDONE HCL 10 MG TABLET ONE (04:23)
[2021-09-09] MEDS ORDERED: methaDONE HCL 40 MG DISPERSABLE TABLET ONE (04:23)
[2021-09-09 10:07] LABS: SARS-CoV-2 NAA Not Detected (Not Detected)
[2021-09-09] MEDS: PRENATAL VITAMINS W/ FOLIC ACID TABLET (FP) PO SCH (10:58)
[2021-09-09] MEDS: NICOTINE 7 MG/24 HOURS TOPICAL PATCH TD SCH (10:58)
[2021-09-09] MEDS: SERTRALINE HCL 50 MG TABLET (FP) PO SCH (10:59)
[2021-09-09] MEDS: hydrOXYzine PAMOATE 25 MG CAPSULE (FP) PO PRN (10:59)
[2021-09-09] MEDS: NICOTINE 10 MG CARTRIDGE (INHALER) IH PRN (14:31)
[2021-09-09] MEDS: THIAMINE HCL 100 MG TABLET (FP) PO SCH (21:12)
[2021-09-09] MEDS: PRAZOSIN HCL 1 MG CAPSULE PO SCH (21:12)
[2021-09-09] MEDS: SUVOREXANT 10 MG TABLET PO PRN (21:12)
[2021-09-10] MEDS ORDERED: methaDONE HCL 10 MG TABLET ONE (03:21)
[2021-09-10] MEDS ORDERED: methaDONE HCL 40 MG DISPERSABLE TABLET ONE (03:22)
[2021-09-10] MEDS: SERTRALINE HCL 50 MG TABLET (FP) PO SCH (09:56)
[2021-09-10] MEDS: hydrOXYzine PAMOATE 25 MG CAPSULE (FP) PO PRN ×2 (09:56→21:12)
[2021-09-10] MEDS: NICOTINE 7 MG/24 HOURS TOPICAL PATCH TD SCH (09:56)
[2021-09-10] MEDS: PRENATAL VITAMINS W/ FOLIC ACID TABLET (FP) PO SCH (09:56)
[2021-09-10] MEDS: THIAMINE HCL 100 MG TABLET (FP) PO SCH (21:11)
[2021-09-10] MEDS: METHOCARBAMOL 500 MG TABLET PO PRN (21:11)
[2021-09-10] MEDS: SUVOREXANT 10 MG TABLET PO PRN (21:11)
[2021-09-10] MEDS: PRAZOSIN HCL 1 MG CAPSULE PO SCH (21:11)
[2021-09-11] MEDS ORDERED: methaDONE HCL 10 MG TABLET ONE (03:38)
[2021-09-11] MEDS ORDERED: methaDONE HCL 40 MG DISPERSABLE TABLET ONE (03:38)
[2021-09-11] MEDS: NICOTINE 10 MG CARTRIDGE (INHALER) IH PRN (06:19)
[2021-09-11] MEDS: SERTRALINE HCL 50 MG TABLET (FP) PO SCH (10:39)
[2021-09-11] MEDS: NICOTINE 7 MG/24 HOURS TOPICAL PATCH TD SCH (10:39)
[2021-09-11] MEDS: hydrOXYzine PAMOATE 25 MG CAPSULE (FP) PO PRN (10:39)
[2021-09-11] MEDS: PRENATAL VITAMINS W/ FOLIC ACID TABLET (FP) PO SCH (10:39)
[2021-09-11] MEDS: PRAZOSIN HCL 1 MG CAPSULE PO SCH (21:16)
[2021-09-11] MEDS: THIAMINE HCL 100 MG TABLET (FP) PO SCH (21:17)
[2021-09-11] MEDS: SUVOREXANT 10 MG TABLET PO PRN (21:18)
[2021-09-12] MEDS ORDERED: methaDONE HCL 10 MG TABLET ONE (03:57)
[2021-09-12] MEDS ORDERED: methaDONE HCL 40 MG DISPERSABLE TABLET ONE (03:57)
[2021-09-12] MEDS: NICOTINE 10 MG CARTRIDGE (INHALER) IH PRN ×3 (06:19→21:57)
[2021-09-12] MEDS: SERTRALINE HCL 50 MG TABLET (FP) PO SCH (10:42)
[2021-09-12] MEDS: PRENATAL VITAMINS W/ FOLIC ACID TABLET (FP) PO SCH (10:42)
[2021-09-12] MEDS: NICOTINE 7 MG/24 HOURS TOPICAL PATCH TD SCH (10:43)
[2021-09-12] MEDS: hydrOXYzine PAMOATE 25 MG CAPSULE (FP) PO PRN (10:44)
[2021-09-12] MEDS: THIAMINE HCL 100 MG TABLET (FP) PO SCH (21:54)
[2021-09-12] MEDS: PRAZOSIN HCL 1 MG CAPSULE PO SCH (21:54)
[2021-09-12] MEDS: SUVOREXANT 10 MG TABLET PO PRN (21:57)
[2021-09-13] MEDS ORDERED: methaDONE HCL 40 MG DISPERSABLE TABLET PO SCH (06:00)
[2021-09-13] MEDS: hydrOXYzine PAMOATE 25 MG CAPSULE (FP) PO PRN ×2 (06:15→10:21)
[2021-09-13] MEDS ORDERED: methaDONE HCL 40 MG DISPERSABLE TABLET ONE (06:15)
[2021-09-13] MEDS ORDERED: methaDONE HCL 10 MG TABLET ONE (06:15)
[2021-09-13] MEDS: NICOTINE 10 MG CARTRIDGE (INHALER) IH PRN ×2 (06:16→21:16)
[2021-09-13] MEDS: PRENATAL VITAMINS W/ FOLIC ACID TABLET (FP) PO SCH (10:20)
[2021-09-13] MEDS: NICOTINE 7 MG/24 HOURS TOPICAL PATCH TD SCH (10:21)
[2021-09-13] MEDS: SERTRALINE HCL 50 MG TABLET (FP) PO SCH (10:21)
[2021-09-13] MEDS: THIAMINE HCL 100 MG TABLET (FP) PO SCH (21:14)
[2021-09-13] MEDS: PRAZOSIN HCL 1 MG CAPSULE PO SCH (21:14)
[2021-09-13] MEDS: SUVOREXANT 10 MG TABLET PO PRN (21:14)
[2021-09-14] MEDS ORDERED: methaDONE HCL 10 MG TABLET ONE (03:18)
[2021-09-14] MEDS ORDERED: methaDONE HCL 40 MG DISPERSABLE TABLET ONE (03:19)
[2021-09-14] MEDS: PRENATAL VITAMINS W/ FOLIC ACID TABLET (FP) PO SCH (10:39)
[2021-09-14] MEDS: NICOTINE 7 MG/24 HOURS TOPICAL PATCH TD SCH (10:39)
[2021-09-14] MEDS: NICOTINE 10 MG CARTRIDGE (INHALER) IH PRN (10:40)
[2021-09-14] MEDS: SERTRALINE HCL 50 MG TABLET (FP) PO SCH (10:41)
[2021-09-14] MEDS: hydrOXYzine PAMOATE 25 MG CAPSULE (FP) PO PRN ×2 (10:42→21:27)
[2021-09-14] MEDS: PRAZOSIN HCL 1 MG CAPSULE PO SCH (21:24)
[2021-09-14] MEDS: THIAMINE HCL 100 MG TABLET (FP) PO SCH (21:24)
[2021-09-14] MEDS: SUVOREXANT 10 MG TABLET PO PRN (21:27)
[2021-09-15] MEDS ORDERED: methaDONE HCL 40 MG DISPERSABLE TABLET ONE (05:47)
[2021-09-15] MEDS ORDERED: methaDONE HCL 10 MG TABLET ONE (05:47)
[2021-09-15] MEDS: hydrOXYzine PAMOATE 25 MG CAPSULE (FP) PO PRN ×2 (10:54→21:44)
[2021-09-15] MEDS: NICOTINE 7 MG/24 HOURS TOPICAL PATCH TD SCH (10:55)
[2021-09-15] MEDS: NICOTINE 10 MG CARTRIDGE (INHALER) IH PRN ×2 (10:55→21:43)
[2021-09-15] MEDS: SERTRALINE HCL 50 MG TABLET (FP) PO SCH (10:55)
[2021-09-15] MEDS: PRENATAL VITAMINS W/ FOLIC ACID TABLET (FP) PO SCH (10:55)
[2021-09-15] MEDS: ALBUTEROL SO4 HFA INHALER IH PRN (11:32)
[2021-09-15] MEDS ORDERED: COLLOIDAL OATMEAL 1 BAR EACH TP PRN (12:09)
[2021-09-15] MEDS: THIAMINE HCL 100 MG TABLET (FP) PO SCH (21:42)
[2021-09-15] MEDS: PRAZOSIN HCL 1 MG CAPSULE PO SCH (21:42)
[2021-09-15] MEDS: SUVOREXANT 10 MG TABLET PO PRN (21:45)
[2021-09-16] MEDS ORDERED: methaDONE HCL 10 MG TABLET ONE (04:22)
[2021-09-16] MEDS ORDERED: methaDONE HCL 40 MG DISPERSABLE TABLET ONE (04:22)
[2021-09-16] MEDS: NICOTINE 10 MG CARTRIDGE (INHALER) IH PRN ×2 (06:22→21:16)
[2021-09-16] MEDS: PRENATAL VITAMINS W/ FOLIC ACID TABLET (FP) PO SCH (10:17)
[2021-09-16] MEDS: NICOTINE 7 MG/24 HOURS TOPICAL PATCH TD SCH (10:18)
[2021-09-16] MEDS: SERTRALINE HCL 50 MG TABLET (FP) PO SCH (10:18)
[2021-09-16] MEDS: hydrOXYzine PAMOATE 25 MG CAPSULE (FP) PO PRN ×2 (10:19→21:15)
[2021-09-16] MEDS: SUVOREXANT 10 MG TABLET PO PRN (21:15)
[2021-09-16] MEDS: PRAZOSIN HCL 1 MG CAPSULE PO SCH (21:15)
[2021-09-16] MEDS: THIAMINE HCL 100 MG TABLET (FP) PO SCH (21:15)
[2021-09-17] MEDS ORDERED: methaDONE HCL 40 MG DISPERSABLE TABLET ONE (03:49)
[2021-09-17] MEDS ORDERED: methaDONE HCL 10 MG TABLET ONE (03:49)
[2021-09-17] MEDS: NICOTINE 10 MG CARTRIDGE (INHALER) IH PRN ×2 (05:58→21:19)
[2021-09-17] MEDS: PRENATAL VITAMINS W/ FOLIC ACID TABLET (FP) PO SCH (10:16)
[2021-09-17] MEDS: hydrOXYzine PAMOATE 25 MG CAPSULE (FP) PO PRN (10:17)
[2021-09-17] MEDS: SERTRALINE HCL 50 MG TABLET (FP) PO SCH (10:17)
[2021-09-17] MEDS: NICOTINE 7 MG/24 HOURS TOPICAL PATCH TD SCH (10:18)
[2021-09-17] MEDS: THIAMINE HCL 100 MG TABLET (FP) PO SCH (21:19)
[2021-09-17] MEDS: PRAZOSIN HCL 1 MG CAPSULE PO SCH (21:19)
[2021-09-17] MEDS: SUVOREXANT 10 MG TABLET PO PRN (21:21)
[2021-09-18] MEDS ORDERED: methaDONE HCL 10 MG TABLET ONE (04:18)
[2021-09-18] MEDS ORDERED: methaDONE HCL 40 MG DISPERSABLE TABLET ONE (04:18)
[2021-09-18] MEDS: PRENATAL VITAMINS W/ FOLIC ACID TABLET (FP) PO SCH (09:44)
[2021-09-18] MEDS: NICOTINE 7 MG/24 HOURS TOPICAL PATCH TD SCH (09:45)
[2021-09-18] MEDS: NICOTINE 10 MG CARTRIDGE (INHALER) IH PRN ×2 (09:45→21:21)
[2021-09-18] MEDS: SERTRALINE HCL 50 MG TABLET (FP) PO SCH (09:45)
[2021-09-18] MEDS: hydrOXYzine PAMOATE 25 MG CAPSULE (FP) PO PRN (09:45)
[2021-09-18] MEDS: THIAMINE HCL 100 MG TABLET (FP) PO SCH (21:18)
[2021-09-18] MEDS: SUVOREXANT 10 MG TABLET PO PRN (21:18)
[2021-09-18] MEDS: PRAZOSIN HCL 1 MG CAPSULE PO SCH (21:18)
[2021-09-19] MEDS ORDERED: methaDONE HCL 40 MG DISPERSABLE TABLET ONE (04:01)
[2021-09-19] MEDS ORDERED: methaDONE HCL 10 MG TABLET ONE (04:01)
[2021-09-19] MEDS: NICOTINE 7 MG/24 HOURS TOPICAL PATCH TD SCH (10:20)
[2021-09-19] MEDS: PRENATAL VITAMINS W/ FOLIC ACID TABLET (FP) PO SCH (10:20)
[2021-09-19] MEDS: hydrOXYzine PAMOATE 25 MG CAPSULE (FP) PO PRN (10:20)
[2021-09-19] MEDS: SERTRALINE HCL 50 MG TABLET (FP) PO SCH (10:20)
[2021-09-19] MEDS: SUVOREXANT 10 MG TABLET PO PRN (21:24)
[2021-09-19] MEDS: PRAZOSIN HCL 1 MG CAPSULE PO SCH (21:24)
[2021-09-19] MEDS: THIAMINE HCL 100 MG TABLET (FP) PO SCH (21:25)
[2021-09-19] MEDS: NICOTINE 10 MG CARTRIDGE (INHALER) IH PRN (21:26)
[2021-09-20] MEDS ORDERED: methaDONE HCL 10 MG TABLET ONE (05:45)
[2021-09-20] MEDS ORDERED: methaDONE HCL 40 MG DISPERSABLE TABLET ONE (05:45)
[2021-09-20] MEDS ORDERED: methaDONE HCL 10 MG TABLET PO SCH (06:00)
[2021-09-20] MEDS: SERTRALINE HCL 50 MG TABLET (FP) PO SCH (10:18)
[2021-09-20] MEDS: NICOTINE 7 MG/24 HOURS TOPICAL PATCH TD SCH (10:18)
[2021-09-20] MEDS: PRENATAL VITAMINS W/ FOLIC ACID TABLET (FP) PO SCH (10:18)
[2021-09-20] MEDS: NICOTINE 10 MG CARTRIDGE (INHALER) IH PRN (10:19)
[2021-09-20] MEDS: hydrOXYzine PAMOATE 25 MG CAPSULE (FP) PO PRN ×2 (10:19→21:30)
[2021-09-20] MEDS: PRAZOSIN HCL 1 MG CAPSULE PO SCH (21:28)
[2021-09-20] MEDS: SUVOREXANT 10 MG TABLET PO PRN (21:29)
[2021-09-20] MEDS: THIAMINE HCL 100 MG TABLET (FP) PO SCH (21:29)
[2021-09-21] MEDS ORDERED: methaDONE HCL 10 MG TABLET ONE (04:00)
[2021-09-21] MEDS ORDERED: methaDONE HCL 40 MG DISPERSABLE TABLET ONE (04:00)
[2021-09-21] MEDS: NICOTINE 10 MG CARTRIDGE (INHALER) IH PRN ×3 (05:56→21:22)
[2021-09-21] MEDS: SERTRALINE HCL 50 MG TABLET (FP) PO SCH (10:25)
[2021-09-21] MEDS: PRENATAL VITAMINS W/ FOLIC ACID TABLET (FP) PO SCH (10:25)
[2021-09-21] MEDS: NICOTINE 7 MG/24 HOURS TOPICAL PATCH TD SCH (10:26)
[2021-09-21] MEDS: hydrOXYzine PAMOATE 25 MG CAPSULE (FP) PO PRN (10:26)
[2021-09-21] MEDS: ALBUTEROL SO4 HFA INHALER IH PRN (21:20)
[2021-09-21] MEDS: THIAMINE HCL 100 MG TABLET (FP) PO SCH (21:20)
[2021-09-21] MEDS: PRAZOSIN HCL 1 MG CAPSULE PO SCH (21:20)
[2021-09-21] MEDS: SUVOREXANT 10 MG TABLET PO PRN (21:22)
[2021-09-22] MEDS ORDERED: methaDONE HCL 10 MG TABLET ONE (03:54)
[2021-09-22] MEDS ORDERED: methaDONE HCL 40 MG DISPERSABLE TABLET ONE (03:54)
[2021-09-22] MEDS: PRENATAL VITAMINS W/ FOLIC ACID TABLET (FP) PO SCH (10:12)
[2021-09-22] MEDS: NICOTINE 10 MG CARTRIDGE (INHALER) IH PRN (10:13)
[2021-09-22] MEDS: SERTRALINE HCL 50 MG TABLET (FP) PO SCH (10:13)
[2021-09-22] MEDS: hydrOXYzine PAMOATE 25 MG CAPSULE (FP) PO PRN (10:14)
[2021-09-22] MEDS: NICOTINE 7 MG/24 HOURS TOPICAL PATCH TD SCH (10:14)
[2021-09-22] MEDS: SUVOREXANT 10 MG TABLET PO PRN (21:17)
[2021-09-22] MEDS: PRAZOSIN HCL 1 MG CAPSULE PO SCH (21:17)
[2021-09-22] MEDS: THIAMINE HCL 100 MG TABLET (FP) PO SCH (21:17)
[2021-09-23] MEDS ORDERED: methaDONE HCL 40 MG DISPERSABLE TABLET ONE (03:10)
[2021-09-23] MEDS ORDERED: methaDONE HCL 10 MG TABLET ONE (03:10)
[2021-09-23] MEDS: NICOTINE 10 MG CARTRIDGE (INHALER) IH PRN ×4 (06:12→21:23)
[2021-09-23] MEDS: SERTRALINE HCL 50 MG TABLET (FP) PO SCH (10:12)
[2021-09-23] MEDS: NICOTINE 7 MG/24 HOURS TOPICAL PATCH TD SCH (10:12)
[2021-09-23] MEDS: hydrOXYzine PAMOATE 25 MG CAPSULE (FP) PO PRN (10:12)
[2021-09-23] MEDS: PRENATAL VITAMINS W/ FOLIC ACID TABLET (FP) PO SCH (10:12)
[2021-09-23] MEDS: METHOCARBAMOL 500 MG TABLET PO PRN ×2 (17:13→21:21)
[2021-09-23] MEDS: PRAZOSIN HCL 1 MG CAPSULE PO SCH (21:19)
[2021-09-23] MEDS: SUVOREXANT 10 MG TABLET PO PRN (21:19)
[2021-09-23] MEDS: THIAMINE HCL 100 MG TABLET (FP) PO SCH (21:19)
[2021-09-24] MEDS ORDERED: methaDONE HCL 10 MG TABLET ONE (04:00)
[2021-09-24] MEDS ORDERED: methaDONE HCL 40 MG DISPERSABLE TABLET ONE (04:00)
[2021-09-24] MEDS: NICOTINE 10 MG CARTRIDGE (INHALER) IH PRN (05:54)
[2021-09-24] MEDS: METHOCARBAMOL 500 MG TABLET PO PRN (07:11)
[2021-09-24 07:32] VITALS: TEMP 97.7
[2021-09-24] MEDS: hydrOXYzine PAMOATE 25 MG CAPSULE (FP) PO PRN (09:47)
[2021-09-24] MEDS: SERTRALINE HCL 50 MG TABLET (FP) PO SCH (09:47)
[2021-09-24] MEDS: NICOTINE 7 MG/24 HOURS TOPICAL PATCH TD SCH (09:47)
[2021-09-24] MEDS: PRENATAL VITAMINS W/ FOLIC ACID TABLET (FP) PO SCH (09:47)
[2021-09-24 11:13] VITALS: BP 127/72; PULSE 87
== END 2021-09-24 10:15 | disposition home or self-care (01) | DRG 772 ==
LOC: YASAS 14:17 → Y5N 14:18
PROVIDERS: ADMIT Allergy & Immunology; ATTEND Psychiatry & Neurology Pain Medicine
PROC: HZ42ZZZ Group Counseling for Substance Abuse Treatment, Cognitive-Behavioral (ICD-10-PCS; principal; 2021-09-05)
DX: F11.20 Opioid dependence, uncomplicated (principal); F10.20 Alcohol dependence, uncomplicated; F14.20 Cocaine dependence, uncomplicated; F17.210 Nicotine dependence, cigarettes, uncomplicated; F31.9 Bipolar disorder, unspecified; F39 Unspecified mood [affective] disorder; F12.20 Cannabis dependence, uncomplicated; F43.10 Post-traumatic stress disorder, unspecified; I10 Essential (primary) hypertension; R73.03 Prediabetes; Z62.810 Personal history of physical and sexual abuse in childhood; Z96.641 Presence of right artificial hip joint; Z91.19 Patient's noncompliance with other medical treatment and regimen
CPT/HCPCS: C9803-CS; U0003; U0005